=== PATIENT | male | born 1945 | race Caucasian/White ===

== ENCOUNTER 2016-10-16 16:18 | Emergency (ER) | payer OTHER, BC ==
[~2016-10-16] VITALS: Ht 177.8 cm; Wt 129.6 kg
[~2016-10-16 16:18] MED LIST: ALBUAER19 INH; ALPR1TAB3 PO; AMB10 PO; BENA1TAB53 PO; FLUO20CA35 PO; HYDC25 PO; MULT-506 PO; TADA10TA PO; ULT/50 PO
[2016-10-16 16:24] VITALS: Ht 177.8 cm; Wt 129.6 kg
[2016-10-16] MEDS ORDERED: ASPIRIN 81 MG CHEW PO STA (16:39)
[2016-10-16 16:44] VITALS: O2SAT 93
--- NOTE | 2016-10-16 16:56 | DIAGNOSTIC IMAGING REPORT ---
CHEST ONE VIEW PORTABLE CLINICAL HISTORY: Evaluate Fever/Sepsis COMPARISON STUDY: 09/01/2011 FINDINGS: The bones soft tissues and hemidiaphragms are normal. The cardiomediastinal silhouette is normal. The lungs are clear. The pulmonary vasculature is normal. IMPRESSION: Negative chest. Electronically signed by: Jacob Conklin M.D. 10/16/2016 4:54 PM Dictated Date/Time: 10/16/2016 4:54 PM
[2016-10-16 16:58] LABS: BASO % 0.3 %; BASO ABS # 0.02 K/uL (0-0.2); COMPLETE YES; EOS % 4.2 %; HEMATOCRIT 47.1 % (42-52); IG% 0.1 %; LYMPH % 28.3 %; LYMPH ABS # 2.04 K/uL (1.2-3.4); MEAN CELL VOLUME 95.3 fL (80-100); MEAN CORPUSCULAR HGB CONC 33.5 g/dl (32-36); MEAN PLATELET VOLUME 9.8 fL (7.4-10.4); NEUT % 57.1 %; PLATELET COUNT 300 K/uL (130-400); RED BLOOD COUNT 4.94 M/uL (4.7-6.1); WHITE BLOOD COUNT 7.21 K/uL (4.8-10.8)
[2016-10-16 17:06] LABS: PARTIAL THROMBOPLASTIN RATIO 1.1; PROTHROMBIN TIME (PATIENT) 11.1 SECONDS (9.0-12.0)
[2016-10-16] MEDS ORDERED: FLUO20CA35 PO (17:06)
[2016-10-16] MEDS ORDERED: PRLSR20 PO (17:10)
[2016-10-16] MEDS ORDERED: NAPR1TAB48 PO (17:11)
[2016-10-16 17:18] LABS: ALT/SGPT 34 U/L (12-78); AST/SGOT 24 U/L (15-37); BLOOD UREA NITROGEN 36 mg/dl (7-18); BUN/CREATININE RATIO 25.4 (10-20); CALCIUM 8.9 mg/dl (8.5-10.1); CARBON DIOXIDE 30 mmol/L (21-32); CHLORIDE 103 mmol/L (98-107); GLUCOSE 108 mg/dl (70-99); POTASSIUM 3.6 mmol/L (3.5-5.1); SODIUM 140 mmol/L (136-145)
[2016-10-16 17:22] LABS: URINE APPEARANCE CLEAR (CLEAR); URINE BILIRUBIN NEG (NEG); URINE COLOR YELLOW; URINE NITRITE NEG (NEG); URINE SPECIFIC GRAVITY 1.025 (1.000-1.030); UROBILINOGEN NEG (NEG)
[2016-10-16 17:23] LABS: MANUAL MICROSCOPIC REQUIRED? NO; REVIEW REQ? NO
[2016-10-16 17:29] LABS: ALKALINE PHOSPHATASE 95 U/L (45-117); CKMB/CK RATIO 1.1 (0-3.0)
--- NOTE | 2016-10-16 17:48 | EMERGENCY ROOM VISIT NOTE ---
History Report prepared by Emile: Efren Elizalde Under the Supervision of: Dr. Corby Rose D.O. First contact with patient: 16:28 Chief Complaint: RESPIRATORY PROBLEMS Stated Complaint: POSSIBLE PNX Nursing Triage Summary: pt reports hx of pneumonia and has a ventolin inh to use as needed , " I feel like my breathing is restricted X 3-4 days with sinus congestion R ear feels plugged and painful" reports feeling a burning feeling and tightness in chest + mucus production kasper to clear in color History of Present Illness The patient is a 71 year old male who presents to the Emergency Room with complaints of constant shortness of breath beginning around 4 days ago. He currently rates his discomfort a 7/10 in severity. The patient states that his chest is constantly tight and "it feels like I just did the breast stroke for a week straight." He notes that he does not mind being sick, but his symptoms will not go away. The patient reports that he has been experiencing a gross amount of diaphoresis. He states that when he coughs he gets very lightheaded, numb, and dizzy. 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 He reports that he tends to get chest pain when he does strenuous activity. The patient states that he has seen a insurance business analyst but has never had a stress test. He notes that he takes Prilosec daily, but he ran out of his prescription a few days ago. Source of History: patient Onset: 4 days ago Position: other (global) Symptom Intensity: 7/10 Quality: other (shortness of breath) Timing: constant Modifying Factors (Worsening): exertion (excess) Associated Symptoms: + chest pain, + diaphoresis Note: Associated symptoms: lightheadedness Review of Systems See HPI for pertinent positives & negatives. A total of 10 systems reviewed and were otherwise negative. Past Medical & Surgical Medical Problems: (1) Asthma (2) Biliary colic (3) Gallbladder disease (4) Hypertension (5) Pneumonia (6) Stomach problems Family History Cancer Diabetes mellitus Gallbladder disease Heart disease Social History Smoking Status: Never Smoker Alcohol Use: none Marital Status: Housing Status: lives with family Occupation Status: retired Current/Historical Medications Scheduled Benazepril (Lotensin), 40 MG PO QAM Fluoxetine (Prozac), 60 MG PO QAM Fluoxetine (Prozac), 1 CAP PO HS Hydrochlorothiazide (Hctz *), 25 MG PO QAM Naproxen (Naprosyn), 250 MG PO BID Omeprazole (Prilosec), 20 MG PO DAILY Zolpidem Tartrate (Ambien *), 10 MG PO HS Scheduled PRN Albuterol Inhaler (Ventolin Inhaler), 2 PUFFS INH QID PRN for SOB/Wheezing Alprazolam (Xanax), 1 MG PO TID PRN for Anxiety Tramadol Hcl (Ultram), 100 MG PO Q4H PRN for Pain Allergies Coded Allergies: Diclofenac (Verified Allergy, Mild, CAUSED JAUNDICE, ALTERED LIVER FUNCTION, 10/16/16) Physical Exam Vital Signs Date Time Temp Pulse Resp B/P Pulse Ox O2 Delivery O2 Flow Rate FiO2 10/16/16 16:56 77 10/16/16 16:45 93 Room Air 10/16/16 16:44 93 Room Air 10/16/16 16:24 36.8 84 18 143/87 96 Room Air Physical Exam CONSTITUTIONAL/VITAL SIGNS: Reviewed / noted above. GENERAL: Non-toxic in appearance. INTEGUMENTARY: Warm, dry, and [place]. HEAD: Normocephalic. EYES: without scleral icterus or trauma. ENT/OROPHARYNX: clear and moist. LYMPHADENOPATHY/NECK: Is supple without lymphadenopathy or meningismus. RESPIRATORY: Lungs clear and equal, occasional non-productive cough. CARDIOVASCULAR: Regular rate and rhythm. GI/ABDOMEN: Soft and nontender. No organomegaly or pulsatile mass. No rebound or guarding. Normal bowel sounds. EXTREMITIES: Warm and well perfused. BACK: No CVA tenderness. NEUROLOGICAL: Intact without focal deficits. PSYCHIATRIC: normal affect. MUSCULOSKELETAL: Normally developed with good muscle tone. Medical Decision & Procedures ER Provider Diagnostic Interpretation: X ray results and stated below per my interpretation and radiology interpretation. CHEST ONE VIEW PORTABLE CLINICAL HISTORY: Evaluate Fever/Sepsis COMPARISON STUDY: 09/01/2011 FINDINGS: The bones soft tissues and hemidiaphragms are normal. The cardiomediastinal silhouette is normal. The lungs are clear. The pulmonary vasculature is normal. IMPRESSION: Negative chest. Electronically signed by: Jacob Conklin M.D. 10/16/2016 4:54 PM Dictated Date/Time: 10/16/2016 4:54 PM Laboratory Results 10/16/16 16:40 Red Blood Count 4.94, Mean Corpuscular Volume 95.3, Mean Corpuscular Hemoglobin 32.0, Mean Corpuscular Hemoglobin Concent 33.5, Mean Platelet Volume 9.8, Neutrophils (%) (Auto) 57.1, Lymphocytes (%) (Auto) 28.3, Monocytes (%) (Auto) 10.0, Eosinophils (%) (Auto) 4.2, Basophils (%) (Auto) 0.3, Neutrophils # (Auto ) 4.12, Lymphocytes # (Auto) 2.04, Monocytes # (Auto) 0.72, Eosinophils # (Auto ) 0.30, Basophils # (Auto) 0.02 10/16/16 16:40 Test 10/16/16 16:40 10/16/16 17:00 White Blood Count 7.21 K/uL (4.8-10.8) Red Blood Count 4.94 M/uL (4.7-6.1) Hemoglobin 15.8 g/dL (14.0-18.0) Hematocrit 47.1 % (42-52) Mean Corpuscular Volume 95.3 fL (80-100) Mean Corpuscular Hemoglobin 32.0 pg (25-34) Mean Corpuscular Hemoglobin Concent 33.5 g/dl (32-36) Platelet Count 300 K/uL (130-400) Mean Platelet Volume 9.8 fL (7.4-10.4) Neutrophils (%) (Auto) 57.1 % Lymphocytes (%) (Auto) 28.3 % Monocytes (%) (Auto) 10.0 % Eosinophils (%) (Auto) 4.2 % Basophils (%) (Auto) 0.3 % Neutrophils # (Auto) 4.12 K/uL (1.4-6.5) Lymphocytes # (Auto) 2.04 K/uL (1.2-3.4) Monocytes # (Auto) 0.72 K/uL (0.11-0.59) Eosinophils # (Auto) 0.30 K/uL (0-0.5) Basophils # (Auto) 0.02 K/uL (0-0.2) RDW Standard Deviation 46.2 fL (36.4-46.3) RDW Coefficient of Variation 13.2 % (11.5-14.5) Immature Granulocyte % (Auto) 0.1 % Immature Granulocyte # (Auto) 0.01 K/uL (0.00-0.02) Prothrombin Time 11.1 SECONDS (9.0-12.0) Prothromb Time International Ratio 1.0 (0.9-1.1) Activated Partial Thromboplast Time 28.0 SECONDS (21.0-31.0) Partial Thromboplastin Ratio 1.1 Anion Gap 7.0 mmol/L (3-11) Est Creatinine Clear Calc Drug Dose 67.4 ml/min Estimated GFR () 59.0 Estimated GFR (Non- 50.9 BUN/Creatinine Ratio 25.4 (10-20) Calcium Level 8.9 mg/dl (8.5-10.1) Total Bilirubin 0.5 mg/dl (0.2-1) Direct Bilirubin 0.1 mg/dl (0-0.2) Aspartate Amino Transf (AST/SGOT) 24 U/L (15-37) Alanine Aminotransferase (ALT/SGPT) 34 U/L (12-78) Alkaline Phosphatase 95 U/L (45-117) Total Creatine Kinase 156 U/L (39-308) Creatine Kinase MB 1.7 ng/ml (0.5-3.6) Creatine Kinase MB Ratio 1.1 (0-3.0) Troponin I < 0.015 ng/ml (0-0.045) Total Protein 7.8 gm/dl (6.4-8.2) Albumin 4.2 gm/dl (3.4-5.0) Lipase 170 U/L (73-393) Thyroid Stimulating Hormone (TSH) 3.380 uIu/ml (0.300-4.500) Urine Color YELLOW Urine Appearance CLEAR (CLEAR) Urine pH 6.0 (4.5-7.5) Urine Specific [place] 1.025 (1.000-1.030) Urine Protein NEG (NEG) Urine Glucose (UA) NEG (NEG) Urine Ketones NEG (NEG) Urine Occult Blood NEG (NEG) Urine Nitrite NEG (NEG) Urine Bilirubin NEG (NEG) Urine Urobilinogen NEG (NEG) Urine Leukocyte Esterase SMALL (NEG) Urine WBC (Auto) 1-5 /hpf (0-5) Urine RBC (Auto) 0-4 /hpf (0-4) Urine Hyaline Casts (Auto) 1-5 /lpf (0-5) Urine Epithelial Cells (Auto) 5-10 /lpf (0-5) Urine Bacteria (Auto) NEG (NEG) Laboratory results as stated above per my review. Medications Administered Medications (Trade) Dose Ordered Sig/Marta Route Start Time Stop Time Status Last Admin Dose Admin Aspirin (Aspirin Chew) 324 mg NOW STAT PO 10/16/16 16:39 10/16/16 16:41 DC 10/16/16 16:54 324 MG ECG Indication: SOB/dyspnea Rate (beats per minute): 77 Rhythm: normal sinus Findings: no acute ischemic change, no ectopy ED Course 1636: Previous medical records were reviewed. The patient was evaluated in room A10. A complete history and physical examination was performed. 1638: Ordered Aspirin 324 mg PO 9: On reevaluation, the patient is resting easily. I discussed the results and findings with the patient. He verbalized agreement of the treatment plan. He was discharged home. Medical Decision the differential was considered includes acute myocardial infarction, acute coronary syndrome, myocarditis, pericarditis, pericardial effusions /tamponad, esophageal perforation, thoracic aortic dissection, pulmonary embolism, pneumonia, pneumothorax, pancreatitis, shingles, acute cholecystitis, perforated abdominal viscus. This is a 71-year-old male who presents to the ED with a chief complaint of 3-4 days worth of sinus congestion as well as some tightness in his chest. He describes the tightness as a burning or tight sensation that has been continuous for the past 3 or 4 days. He has a cough that is productive for a grayish to clear sputum. The patient had some diaphoresis this afternoon and the was concerned and brought him to the ED for evaluation. He has not had a fever. His vital signs here are stable. His exam was normal. He does report some exertional symptoms over the past couple of years mainly with mowing the lawn or heavy exertion. He has not had any recent stress tests. His PCP is Dr. Chappell. His physical exam was unremarkable. CBC is normal, chest x-ray was negative for acute disease, chemistry panel was unremarkable with exception of a BUN of 36. TSH is normal, troponin is negative. Urine did not show infection. EKG did not show any ischemic changes. The patient was told results the test. His symptoms might suggest a viral syndrome or acute bronchitis. I do not suspect acute coronary syndrome. He would like to go home. He is told to follow-up with his family doctor for further evaluation of his symptoms. Impression Primary Impression: Bronchitis Additional Impression: URI (upper respiratory infection) Scribe Attestation The scribe's documentation has been prepared under my direction and personally reviewed by me in its entirety. I confirm that the note above accurately reflects all work, treatment, procedures, and medical decision making performed by me. Departure Information Dispostion Home / Self-Care Referrals Pradeep Chappell M.D. (PCP) Patient Instructions My [facility] Additional Instructions Follow-up with your doctor for further care and evaluation in 2-3 days. Return to the emergency department for worsening or new symptoms or any concerns. You have been examined and treated today on an emergency basis only. This is not a substitute for, or an effort to provide, complete comprehensive medical care. It is impossible to recognize and treat all injuries or illnesses in a single emergency department visit. It is therefore important that you follow up closely with your doctor. Call as soon as possible for an appointment. Problem Qualifiers
[2016-10-16 18:04] VITALS: BP 138/85; PULSE 75; TEMP 36.8; O2SAT 94
== END 2016-10-16 18:05 | disposition home or self-care (01) ==
LOC: C.EDB 16:18 → C.EDA 18:05
DX: J06.9 Acute upper respiratory infection, unspecified (principal); J40 Bronchitis, not specified as acute or chronic; J45.909 Unspecified asthma, uncomplicated; I10 Essential (primary) hypertension; K82.9 Disease of gallbladder, unspecified; K80.50 Calculus of bile duct without cholangitis or cholecystitis without obstruction; Z79.899 Other long term (current) drug therapy; Z88.8 Allergy status to other drugs, medicaments and biological substances; Z80.9 Family history of malignant neoplasm, unspecified; Z83.3 Family history of diabetes mellitus; Z83.79 Family history of other diseases of the digestive system; Z82.49 Family history of ischemic heart disease and other diseases of the circulatory system

== ENCOUNTER 2017-06-13 10:40 | Emergency (ER) | payer OTHER, BC ==
[~2017-06-13] VITALS: Ht 177.8 cm; Wt 131.7 kg
[~2017-06-13 10:40] MED LIST changes: -MULT-506 PO; +NAPR1TAB48 PO; +PRLSR20 PO; -TADA10TA PO
[2017-06-13 10:47] VITALS: TEMP 36.5; Ht 177.8 cm; Wt 131.7 kg
[2017-06-13] MEDS ORDERED: PROCHLORPERAZINE 5 MG/ML 2 ML VIAL IV STA (10:59)
[2017-06-13] MEDS ORDERED: DiphenhydrAMINE HCL 50 MG/ML VIAL IV STA (10:59)
[2017-06-13] MEDS ORDERED: SODIUM CHLORIDE 0.9% 500ML 500 ML IV STA (10:59)
--- NOTE | 2017-06-13 11:04 | EMERGENCY ROOM VISIT NOTE ---
History Report prepared by Emile: Jasmeet Hills Under the Supervision of: Dr. Alycia Graff M.D. First contact with patient: 10:55 Chief Complaint: HEADACHE Stated Complaint: JI AND VISION History of Present Illness The patient is a 72 year old male with a history of hypertension who presents to the Emergency Room with complaints of persistent head pain that started 4 to 5 weeks ago after hitting his head. He states that at that time, he was playing with his cat, and fell and landed "solely on [his] head". The patient says that he has had constant pain since the incident, and he has been having eye soreness and pressure as well. He notes that he has not vomited, but has been close. He states that he has been having some neck pain and "tension". The patient says that he has been eating and drinking fine. He notes no blood thinner use. Source of History: patient Onset: 4 to 5 weeks ago Position: head Symptom Intensity: after landing on head 4 to 5 weeks ago Quality: other (pain all the way around) Timing: constant, other (persistent) Associated Symptoms: + neck pain, No vomiting (but has been close.) Note: Associated symptoms: Eye pressure and soreness. Review of Systems See HPI for pertinent positives & negatives. A total of 10 systems reviewed and were otherwise negative. Past Medical & Surgical Medical Problems: (1) Asthma (2) Biliary colic (3) Gallbladder disease (4) Hypertension (5) Pneumonia (6) Stomach problems Family History Cancer Diabetes mellitus Gallbladder disease Heart disease Social History Smoking Status: Never Smoker Alcohol Use: none Marital Status: Housing Status: lives with family Occupation Status: retired Current/Historical Medications Scheduled Benazepril (Lotensin), 40 MG PO DAILY Fluoxetine (Prozac), 60 MG PO DAILY Hydrochlorothiazide (Hydrochlorothiazide), 25 MG PO DAILY Naproxen (Naproxen), 500 MG PO UD Scheduled PRN Alprazolam (Xanax), 1 MG PO TID PRN for Anxiety Tramadol Hcl (Ultram), 100 MG PO Q4H PRN for Pain Zolpidem Tartrate (Ambien), 10 MG PO HS PRN for Sleep Allergies Coded Allergies: Diclofenac (Verified Allergy, Mild, CAUSED JAUNDICE, ALTERED LIVER FUNCTION, 10/16/16) Physical Exam Vital Signs Date Time Temp Pulse Resp B/P (MAP) Pulse Ox O2 Delivery O2 Flow Rate FiO2 06/13/17 13:05 72 18 128/68 96 Room Air 06/13/17 10:47 36.5 77 20 143/81 96 Room Air Physical Exam Vital signs reviewed. General: Well-appearing 72 year old male, in no significant distress. HEENT: No scleral icterus, PERRLA, neck supple. No meningeal signs Cardiovascular: Regular rate and rhythm, no extra sounds. Pulmonary: Clear to auscultation bilaterally, normal work of breathing. Abdomen: Soft, nontender, nondistended, positive bowel sounds. Musculoskeletal: Atraumatic, no peripheral edema. Mild cervical tenderness. Neurologic: Patient awake alert and oriented x 3, full strength in all 4 extremities. Cranial nerves 2 through 12 grossly intact. Skin: Warm, dry, no rash Medical Decision & Procedures ER Provider Diagnostic Interpretation: CT results as stated below per my review and radiologist interpretation: HEAD WITHOUT CONTRAST (CT) CT DOSE: 1186.24 mGy.cm HISTORY: Headache. Trauma. headache TECHNIQUE: Multiaxial CT images of the head were performed without the use of intravenous contrast. A dose lowering technique was utilized adhering to the principles of ALARA. Comparison: None. Findings: The paranasal sinuses and mastoid air cells are clear. The calvarium and skull base are intact. The ventricles and sulci are within normal limits. There is no mass, hematoma, midline shift, or acute infarct. Impression: No acute intracranial abnormality. The above report was generated using voice recognition software. It may contain grammatical, syntax or spelling errors. Electronically signed by: Jacob Conklin M.D 06/13/2017 11:57 AM Dictated Date/Time: 06/13/2017 11:[address] SCAN OF THE CERVICAL SPINE CLINICAL HISTORY: Neck pain. Fall one month ago. COMPARISON STUDY: Radiographs of the cervical spine dated 08/16/2008. TECHNIQUE: CT scan of the cervical spine is performed from the skull base to the upper thoracic spine. Images are reviewed in the axial, sagittal, and coronal planes. IV contrast was not administered for this examination. A dose lowering technique was utilized adhering to the principles of ALARA. FINDINGS: Skeletal structures: The skeletal structures are osteopenic. There is no evidence of fracture or subluxation involving the cervical spine. Vertebral body height and alignment are maintained. There are postoperative changes from anterior fusion seen at C5-C6. The orthopedic hardware appears intact. There is straightening of the cervical lordosis. The odontoid process and lateral masses are intact. The atlantoaxial articulation is preserved noting advanced productive degenerative change. The spinous processes appear intact. There is moderate multilevel cervical spondylosis. Uncovertebral and facet arthropathy contribute to neural foraminal narrowing at several levels. Intervertebral discs: There is moderate to advanced disc space narrowing seen from C3 -C4 through C7-T1. Central canal: Large posterior disc osteophyte complexes are seen at C3-C4, C4-C5, C5-C6, and C6-C7. This likely contributes to multilevel acquired compromise of the central canal. Soft tissues: The prevertebral and paraspinous soft tissues are within normal limits. Calcification is seen along the nuchal ligament. Calvarium: The visualized calvarium at the skull base appears intact. Brain parenchyma: Partially visualized brain parenchyma the skull base is within normal limits. Sinuses and mastoids: The visualized paranasal sinuses are clear. The mastoid air cells are well pneumatized. Lung apices: Clear as visualized. IMPRESSION: 1. There is no evidence of fracture or subluxation involving the cervical spine. 2. Osteopenia with postoperative and spondylotic changes as above. Electronically signed by: Tr Mccauley M.D. 06/13/2017 12:07 PM Dictated Date/Time: 06/13/2017 12:03 PM Laboratory Results 06/13/17 11:15 Red Blood Count 4.62, Mean Corpuscular Volume 95.7, Mean Corpuscular Hemoglobin 32.5, Mean Corpuscular Hemoglobin Concent 33.9, Mean Platelet Volume 10.2, Neutrophils (%) (Auto) 60.5, Lymphocytes (%) (Auto) 24.4, Monocytes (%) (Auto) 9.6, Eosinophils (%) (Auto) 4.9, Basophils (%) (Auto) 0.3, Neutrophils # (Auto) 3.47, Lymphocytes # (Auto) 1.40, Monocytes # (Auto) 0.55, Eosinophils # (Auto) 0.28, Basophils # (Auto) 0.02 06/13/17 11:15 Test 06/13/17 11:15 White Blood Count 5.74 K/uL (4.8-10.8) Red Blood Count 4.62 M/uL (4.7-6.1) Hemoglobin 15.0 g/dL (14.0-18.0) Hematocrit 44.2 % (42-52) Mean Corpuscular Volume 95.7 fL (80-100) Mean Corpuscular Hemoglobin 32.5 pg (25-34) Mean Corpuscular Hemoglobin Concent 33.9 g/dl (32-36) Platelet Count 287 K/uL (130-400) Mean Platelet Volume 10.2 fL (7.4-10.4) Neutrophils (%) (Auto) 60.5 % Lymphocytes (%) (Auto) 24.4 % Monocytes (%) (Auto) 9.6 % Eosinophils (%) (Auto) 4.9 % Basophils (%) (Auto) 0.3 % Neutrophils # (Auto) 3.47 K/uL (1.4-6.5) Lymphocytes # (Auto) 1.40 K/uL (1.2-3.4) Monocytes # (Auto) 0.55 K/uL (0.11-0.59) Eosinophils # (Auto) 0.28 K/uL (0-0.5) Basophils # (Auto) 0.02 K/uL (0-0.2) RDW Standard Deviation 47.3 fL (36.4-46.3) RDW Coefficient of Variation 13.6 % (11.5-14.5) Immature Granulocyte % (Auto) 0.3 % Immature Granulocyte # (Auto) 0.02 K/uL (0.00-0.02) Anion Gap 6.0 mmol/L (3-11) Est Creatinine Clear Calc Drug Dose 67.5 ml/min Estimated GFR () 59.1 Estimated GFR (Non- 51.0 BUN/Creatinine Ratio 22.1 (10-20) Calcium Level 9.0 mg/dl (8.5-10.1) Total Bilirubin 0.7 mg/dl (0.2-1) Direct Bilirubin 0.1 mg/dl (0-0.2) Aspartate Amino Transf (AST/SGOT) 19 U/L (15-37) Alanine Aminotransferase (ALT/SGPT) 29 U/L (12-78) Alkaline Phosphatase 91 U/L (45-117) Total Protein 7.9 gm/dl (6.4-8.2) Albumin 4.2 gm/dl (3.4-5.0) Laboratory results per my review. Medications Administered Medications (Trade) Dose Ordered Sig/Marta Route Start Time Stop Time Status Last Admin Dose Admin Prochlorperazine Edisylate (Compazine Inj) 10 mg NOW STAT IV 06/13/17 10:59 06/13/17 11:01 DC 06/13/17 11:26 10 MG Diphenhydramine HCl (Benadryl Inj) 25 mg NOW STAT IV 06/13/17 10:59 06/13/17 11:01 DC 06/13/17 11:26 25 MG Sodium Chloride 500 ml @ 999 mls/hr Q31M STAT IV 06/13/17 10:59 06/13/17 11:29 DC 06/13/17 11:27 999 MLS/HR Methylprednisolone Sodium Succinate (Solu-Medrol IV) 125 mg NOW STAT IV 06/13/17 11:07 06/13/17 11:08 DC 06/13/17 11:25 125 MG ED Course 1058: Past medical records reviewed. The patient was evaluated in room A2. A complete history and physical examination was performed. 1059: Ordered NSS 500 ml @ 999 mls/hr IV, Benadryl Inj 25 mg IV, Compazine Inj 10 mg IV. 1107: Ordered Solu-Medrol IV 125 mg IV. 1314: Upon reevaluation, the patient appeared to have improvement of his symptoms. I discussed findings with him. He verbalized agreement of the treatment plan. He was discharged home. Medical Decision Differential diagnosis: Intracranial injury, cervical spine injury, intrathoracic injury, intra- abdominal injury, musculoskeletal injury. This patient was evaluated and appeared to be in no significant distress. IV access was obtained and laboratory work was drawn. He was given IV Benadryl, Compazine and Solu-Medrol. Laboratory work is fairly unrevealing. CT scan of the head reveals no evidence of acute intracranial abnormality. Reevaluation, the patient stated that the headache was improved but still persistent. He will be asked to use Tylenol and ibuprofen as needed for pain. He will follow- up with his primary care physician for further management. The patient will return to the ER for worsening of symptoms or any medical concerns. Medication Reconcilliation Current Medication List: was personally reviewed by me Blood Pressure Screening Patient's blood pressure: Elevated blood pressure Blood pressure disposition: Elevated BP felt to be situational Impression Primary Impression: Post concussive syndrome Scribe Attestation The scribe's documentation has been prepared under my direction and personally reviewed by me in its entirety. I confirm that the note above accurately reflects all work, treatment, procedures, and medical decision making performed by me. Departure Information Dispostion Home / Self-Care Referrals Pradeep Chappell M.D. (PCP) Patient Instructions My [facility] Additional Instructions Diagnosis: Postconcussive syndrome Please drink plenty of clear fluids. Tylenol 650 mg every 6 hours as needed for pain. Ibuprofen 600 mg every 6 hours as needed for pain with food. Follow-up with your physician this week for reevaluation. Return to the ER for worsening of symptoms or any medical concerns.
[2017-06-13] MEDS ORDERED: METHYLPREDNISOLONE 125 MG VIAL IV STA (11:07)
[2017-06-13 11:55] LABS: BASO % 0.3 %; BASO ABS # 0.02 K/uL (0-0.2); EOS % 4.9 %; EOS ABS # 0.28 K/uL (0-0.5); HEMATOCRIT 44.2 % (42-52); IG# 0.02 K/uL (0.00-0.02); LYMPH % 24.4 %; MEAN CELL VOLUME 95.7 fL (80-100); MEAN CORPUSCULAR HEMOGLOBIN 32.5 pg (25-34); MEAN CORPUSCULAR HGB CONC 33.9 g/dl (32-36); MEAN PLATELET VOLUME 10.2 fL (7.4-10.4); MONO % 9.6 %; MONO ABS # 0.55 K/uL (0.11-0.59); NEUT % 60.5 %; NEUT ABS # 3.47 K/uL (1.4-6.5); PLATELET COUNT 287 K/uL (130-400); RED CELL DISTRIBUTION WIDTH CV 13.6 % (11.5-14.5); RED CELL DISTRIBUTION WIDTH SD 47.3 fL (36.4-46.3); WHITE BLOOD COUNT 5.74 K/uL (4.8-10.8)
--- NOTE | 2017-06-13 11:59 | DIAGNOSTIC IMAGING REPORT ---
HEAD WITHOUT CONTRAST (CT) CT DOSE: 1186.24 mGy.cm HISTORY: Headache. Trauma. headache TECHNIQUE: Multiaxial CT images of the head were performed without the use of intravenous contrast. A dose lowering technique was utilized adhering to the principles of ALARA. Comparison: None. Findings: The paranasal sinuses and mastoid air cells are clear. The calvarium and skull base are intact. The ventricles and sulci are within normal limits. There is no mass, hematoma, midline shift, or acute infarct. Impression: No acute intracranial abnormality. The above report was generated using voice recognition software. It may contain grammatical, syntax or spelling errors. Electronically signed by: Jacob Conklin M.D. 06/13/2017 11:57 AM Dictated Date/Time: 06/13/2017 11:57 AM
--- NOTE | 2017-06-13 12:09 | DIAGNOSTIC IMAGING REPORT ---
CT SCAN OF THE CERVICAL SPINE CLINICAL HISTORY: Neck pain. Fall one month ago. COMPARISON STUDY: Radiographs of the cervical spine dated 08/16/2008. TECHNIQUE: CT scan of the cervical spine is performed from the skull base to the upper thoracic spine. Images are reviewed in the axial, sagittal, and coronal planes. IV contrast was not administered for this examination. A dose lowering technique was utilized adhering to the principles of ALARA. FINDINGS: Skeletal structures: The skeletal structures are osteopenic. There is no evidence of fracture or subluxation involving the cervical spine. Vertebral body height and alignment are maintained. There are postoperative changes from anterior fusion seen at C5-C6. The orthopedic hardware appears intact. There is straightening of the cervical lordosis. The odontoid process and lateral masses are intact. The atlantoaxial articulation is preserved noting advanced productive degenerative change. The spinous processes appear intact. There is moderate multilevel cervical spondylosis. Uncovertebral and facet arthropathy contribute to neural foraminal narrowing at several levels. Intervertebral discs: There is moderate to advanced disc space narrowing seen from C3 -C4 through C7-T1. Central canal: Large posterior disc osteophyte complexes are seen at C3-C4, C4-C5, C5-C6, and C6-C7. This likely contributes to multilevel acquired compromise of the central canal. Soft tissues: The prevertebral and paraspinous soft tissues are within normal limits. Calcification is seen along the nuchal ligament. Calvarium: The visualized calvarium at the skull base appears intact. Brain parenchyma: Partially visualized brain parenchyma the skull base is within normal limits. Sinuses and mastoids: The visualized paranasal sinuses are clear. The mastoid air cells are well pneumatized. Lung apices: Clear as visualized. IMPRESSION: 1. There is no evidence of fracture or subluxation involving the cervical spine. 2. Osteopenia with postoperative and spondylotic changes as above. Electronically signed by: Tr Mccauley M.D. 06/13/2017 12:07 PM Dictated Date/Time: 06/13/2017 12:03 PM
[2017-06-13 12:20] LABS: ALBUMIN 4.2 gm/dl (3.4-5.0); CREATININE 1.39 mg/dl (0.60-1.40); POTASSIUM 3.7 mmol/L (3.5-5.1)
[2017-06-13 12:23] LABS: TOTAL PROTEIN 7.9 gm/dl (6.4-8.2)
[2017-06-13] MEDS ORDERED: HYDR25TA5 PO (12:32)
[2017-06-13] MEDS ORDERED: FLUO20CA35 PO (12:32)
[2017-06-13] MEDS ORDERED: BENA1TAB53 PO (12:32)
[2017-06-13] MEDS ORDERED: ALPR1TAB3 PO (12:32)
[2017-06-13] MEDS ORDERED: ZOLP10TA PO (12:32)
[2017-06-13] MEDS ORDERED: ULT/50 PO (12:32)
[2017-06-13] MEDS ORDERED: NAPR500T3 PO (12:32)
[2017-06-13 13:05] VITALS: BP 128/68; PULSE 72; O2SAT 96
== END 2017-06-13 13:30 | disposition home or self-care (01) ==
LOC: C.EDB 10:43 → C.EDA 13:30
DX: F07.81 Postconcussional syndrome (principal); J45.909 Unspecified asthma, uncomplicated; K80.50 Calculus of bile duct without cholangitis or cholecystitis without obstruction; K82.9 Disease of gallbladder, unspecified; I10 Essential (primary) hypertension; Z87.01 Personal history of pneumonia (recurrent); Z80.9 Family history of malignant neoplasm, unspecified; Z83.3 Family history of diabetes mellitus; Z83.79 Family history of other diseases of the digestive system; Z82.49 Family history of ischemic heart disease and other diseases of the circulatory system; Z79.899 Other long term (current) drug therapy

== ENCOUNTER → 2017-06-23 | Outpatient (CLI) | payer OTHER, BC ==
[~2017-06-23] MED LIST changes: -ALBUAER19 INH; -AMB10 PO; -HYDC25 PO; +HYDR25TA5 PO; -NAPR1TAB48 PO; +NAPR500T3 PO; -PRLSR20 PO; +ZOLP10TA PO
--- NOTE | 2017-06-23 11:56 | DIAGNOSTIC IMAGING REPORT ---
HEAD WITHOUT CONTRAST (CT) CT DOSE: 638.56 mGycm HISTORY: Trauma CONCUSSION W/DUAL CONFUSION F/U ER VISIT TECHNIQUE: Multiaxial CT images of the head were performed without the use of intravenous contrast. A dose lowering technique was utilized adhering to the principles of ALARA. Comparison: 06/13/2017 Findings: The paranasal sinuses and mastoid air cells are clear. The calvarium and skull base are intact. The ventricles and sulci are within normal limits. There is no mass, hematoma, midline shift, or acute infarct. Impression: No acute intracranial abnormality. No change from the prior study The above report was generated using voice recognition software. It may contain grammatical, syntax or spelling errors. Electronically signed by: Jacob Conklin M.D. 06/23/2017 11:55 AM Dictated Date/Time: 06/23/2017 11:53 AM
== END | disposition home or self-care (01) ==
LOC: C.CTS 11:19
PROVIDERS: ATTEND Family Medicine
DX: S06.0X9A Concussion with loss of consciousness of unspecified duration, initial encounter (principal); X58.XXXA Exposure to other specified factors, initial encounter

== ENCOUNTER → 2017-07-18 | Outpatient (CLI) | payer OTHER, BC ==
--- NOTE | 2017-07-18 18:33 | DIAGNOSTIC IMAGING REPORT ---
CHEST 2 VIEWS ROUTINE HISTORY: ACUTE ASTHMA EXACERBATION COMPARISON: Chest 10/16/2016. FINDINGS: The lungs are clear. Cardiac silhouette is normal in size. No pleural effusions. No pneumothorax. Cervical spinal fusion hardware. IMPRESSION: No acute process. Electronically signed by: Todd Guerra M.D. 07/18/2017 6:32 PM Dictated Date/Time: 07/18/2017 6:30 PM
== END | disposition home or self-care (01) ==
LOC: C.RAD 18:13
PROVIDERS: ATTEND Family Medicine
DX: J45.901 Unspecified asthma with (acute) exacerbation (principal); Z88.6 Allergy status to analgesic agent

== ENCOUNTER 2022-02-07 13:01 | Observation (INO) ==
[2022-02-07] MEDS ORDERED: LORazepam 2 MG/1 ML VIAL IV STA ×2 (13:06→13:12)
[2022-02-07] MEDS: SODIUM CHLORIDE 0.9% 1000ML 1,000 ML IV SCH ×2 (13:19→20:30)
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
[2022-02-07 13:27] LABS: Basophils # (auto) 0.04 K/uL (0-0.2); Basophils % (auto) 0.3 %; Eosinophils # (auto) 0.04 K/uL (0-0.50); Eosinophils % (auto) 0.3 %; Hematocrit (blood only) 44.2 % (40.1-51.0); Hemoglobin 14.5 g/dl (14.0-18.0); Immature Granulocytes # (auto) 0.03 K/uL (0.00-0.02); Immature Granulocytes % (auto) 0.2 %; Lymphocytes # (auto) 0.86 K/uL (1.2-3.4); Lymphocytes % (auto) 6.8 %; Mean Corpuscular Hemoglobin 31.9 pg (25.0-34.0); Mean Corpuscular Hgb Conc 32.8 g/dL (32.0-36.0); Mean Corpuscular Volume 97.1 fL (80.0-100.0); Mean Platelet Volume 10.9 fL (9.4-12.4); Monocytes # (auto) 0.71 K/uL (0.24-0.82); Monocytes % (auto) 5.6 %; Neutrophils # (auto) 10.92 K/uL (1.4-6.5); Neutrophils % (auto) 86.8 %; Platelet Count 264 K/uL (130-400); RDW Coefficient of Variation 13.4 % (11.5-14.5); RDW Standard Deviation 47.8 fL (36.4-46.3); Red Blood Count 4.55 M/uL (4.63-6.08)
--- NOTE | 2022-02-07 13:31 | XRay Report ---
XR chest 1V portable HISTORY: 76 years-old Male cp acute chest pain COMPARISON: Chest radiograph 08/03/2018 TECHNIQUE: Portable AP view of the chest FINDINGS: Cardiomediastinal and hilar silhouettes are within normal limits. No pneumothorax, pleural effusion, airspace consolidation or overt pulmonary edema. Mild chronic interstitial coarsening of the lung bas es. Degenerative changes of the shoulders and spine. IMPRESSION: No acute process. ACT 112: Negative or not required by law. The above report was generated using voice recognition software. It may contain grammatical, syntax o r spelling errors. Electronically signed by: Trey Deleon M.D. 02/07/2022 1:29 PM
--- NOTE | 2022-02-07 13:53 | CT Scan Report ---
CT head/brain wo con CLINICAL HISTORY: 76 years-old Male with pssoible seizure. Acute seizure like activity TECHNIQUE: Multiple axial CT images of the head were obtained without contrast. A dose lowering tech nique was utilized adhering to the principles of ALARA. CT DOSE: 614.27 mGy.cm COMPARISON: Head CT 08/03/2018 FINDINGS: No acute intracranial hemorrhage, midline shift, intracranial mass, hydrocephalus, territorial ischem ia or abnormal extra-axial collection. Mild involutional changes. Carotid vascular calcifications. The calvarium is intact. Trace mastoid effusions. The paranasal sinuses are clear. Unremarkable soft tissues. IMPRESSION: No acute intracranial abnormality. ACT 112: Negative or not required by law. The above report was generated using voice recognition software. It may contain grammatical, syntax o r spelling errors. Electronically signed by: Trey Deleon M.D. 02/07/2022 1:51 PM
[2022-02-07 14:48] LABS: Partial Thromboplastin Ratio 0.9
[2022-02-07 15:07] LABS: Troponin I High Sensitivity 4.5 pg/ml (0-20)
[2022-02-07 15:09] LABS: Albumin Level 4.2 gm/dl (3.4-5.0); Bilirubin Direct 0.1 mg/dl (0-0.2); Bilirubin,Total 0.7 mg/dl (0.2-1.0); Calcium 9.3 mg/dl (8.5-10.1); Creatinine Clr Calc Pharmacy 60.8 ml/min; Est GFR (African American) 64.1 ml/min; Est GFR (Non-African American) 55.3 ml/min; Magnesium 2.1 mg/dl (1.7-2.4); Potassium 4.1 mmol/L (3.5-5.1); Total Protein 7.1 gm/dl (6.0-8.3)
[2022-02-07] MEDS ORDERED: SODIUM CHLORIDE 0.9% 1000ML 500 ML IV ONE (15:12)
[2022-02-07] MEDS: SODIUM CHLORIDE 0.9% 500 ML IV SCH ×2 (15:17→20:30)
[2022-02-07] MEDS ORDERED: OPTIRAY 300 500mL IV ONE (16:03)
--- NOTE | 2022-02-07 16:25 | CT Scan Report ---
CT angio chest PE protocol CT DOSE: 853.28 mGy.cm HISTORY: 76 years-old Male with ro PE. Acute shortness of breath TECHNIQUE: Multiple CTA images of the chest were obtained after the intravenous administration of 101 ml Optiray. Coronal and sagittal MIPS were obtained from the axial data set and were submitted for review. All measurements were obtained according to NASCET criteria. A dose lowering technique was u tilized adhering to the principles of ALARA. COMPARISON: Chest radiograph of same day FINDINGS: CTA: The heart is mildly enlarged. No pericardial effusion. Moderate to extensive coronary artery calcific ations. No thoracic aortic aneurysm or dissection. Suboptimal violation of the pulmonary arterial holger e secondary to respiratory motion artifact. No central pulmonary emboli identified. CT CHEST: Unremarkable thyroid. No lymphadenopathy identified. No pneumothorax, pleural effusion, airspace cons olidation or overt pulmonary edema. Mild right hemidiaphragmatic elevation. No suspicious pulmonary n odules or masses. The central airways appear patent. Cholecystectomy. No acute process of the imaged upper abdomen. 5.1 cm cystic structure of the abdomin al left upper quadrant, possibly an exophytic renal cyst. Unremarkable soft tissues. No acute fractur e. Anterior plate and screw fusion hardware of the cervical spine. IMPRESSION: 1. Limited evaluation of the pulmonary arterial tree secondary to respiratory motion. No central pulm onary emboli identified. 2. No pleural effusion or airspace consolidation to suggest pneumonia. 3. Cardiomegaly. ACT 112: Negative or not required by law. The above report was generated using voice recognition software. It may contain grammatical, syntax o r spelling errors. Electronically signed by: Trey Deleon M.D. 02/07/2022 4:22 PM
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
[2022-02-07] MEDS ORDERED: LORazepam 2 MG/1 ML VIAL IV PRN (18:34)
[2022-02-07] MEDS ORDERED: LORazepam 4 MG in SYRINGE 2 ML IV PRN (19:22)
[2022-02-07] MEDS: ALPRAZolam 0.5 MG TABLET PO SCH (19:49)
[2022-02-07] MEDS: ENOXAPARIN INJ 40 MG/0.4 ML SYR SQ SCH (20:29)
[2022-02-07 22:57] LABS: Appearance Urine Clear (Clear); Bilirubin Urine Negative (Negative); Blood Urine Negative (Negative); Color Urine Yellow; Glucose Urine UA Trace (Negative); Ketones Urine Negative (Negative); Leukocyte Esterase Urine Negative (Negative); Nitrite Urine Negative (Negative); Protein Urine Negative (Negative); Specific Gravity Urine > 1.045 (1.000-1.030); Urobilinogen Urine Negative (Negative); pH Urine 5.5 (4.5-7.5)
[2022-02-08] MEDS ORDERED: PNEUMOCOCCAL Polysaccharide Vaccine 25mcg/0.5mL vial/Syr IM ONE (04:15)
[2022-02-08] MEDS: SODIUM CHLORIDE 0.9% 1000ML 1,000 ML IV SCH ×2 (04:48→13:35)
[2022-02-08 07:49] LABS: Hematocrit (blood only) 39.1 % (40.1-51.0); Hemoglobin 13.3 g/dl (14.0-18.0); Mean Corpuscular Hemoglobin 32.4 pg (25.0-34.0); Mean Corpuscular Volume 95.1 fL (80.0-100.0); Platelet Count 211 K/uL (130-400); RDW Coefficient of Variation 13.3 % (11.5-14.5); RDW Standard Deviation 46.7 fL (36.4-46.3); Red Blood Count 4.11 M/uL (4.63-6.08); White Blood Count 8.69 K/ul (4.8-10.8)
[2022-02-08 08:12] LABS: Albumin Globulin Ratio 1.4 (0.9-2); Albumin Level 3.7 gm/dl (3.4-5.0); BUN Creatinine Ratio 19.8 (10-20); Bilirubin,Total 0.7 mg/dl (0.2-1.0); Calcium 8.8 mg/dl (8.5-10.1); Creatinine Clr Calc Pharmacy 66.2 ml/min; Est GFR (African American) 71.5 ml/min; Est GFR (Non-African American) 61.7 ml/min; Globulin 2.7 gm/dl (2.5-4.0); Potassium 3.7 mmol/L (3.5-5.1); Total Protein 6.4 gm/dl (6.0-8.3)
[2022-02-08] MEDS: SODIUM CHLORIDE 0.9% 500 ML IV SCH ×2 (08:48→08:49)
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
[2022-02-08] MEDS: ALPRAZolam 0.5 MG TABLET PO SCH ×3 (09:28→20:01)
[2022-02-08] MEDS: ACETAMINOPHEN 325 MG TAB PO PRN ×2 (09:28→19:58)
[2022-02-08] MEDS: ENOXAPARIN INJ 40 MG/0.4 ML SYR SQ SCH ×2 (09:30→20:01)
--- NOTE | 2022-02-08 10:18 | Electrocardiogram Report ---
Test Reason : Blood Pressure : / mmHG Vent. Rate : 084 BPM Atrial Rate : 084 BPM P-R Int : 182 ms QRS Dur : 100 ms QT Int : 380 ms P-R-T Axes : 019 -07 053 degrees QTc Int : 449 ms Poor data quality, interpretation may be adversely affected Normal sinus rhythm Minimal voltage criteria for LVH, may be normal variant Borderline ECG When compared with ECG of 03-AUG-2018 02:31, No significant change was found Confirmed by Pradeep Jaime ([id number]) on 02/08/2022 10:18:29 AM Referred By: Confirmed By:Pradeep Jaime
--- NOTE | 2022-02-08 15:37 | XCELERA ---
[id number] \\[id number]
--- NOTE | 2022-02-08 18:59 | Hospitalist Progress Note ---
Date of Service February 08, 2022 Assessment & Plan (1) Seizure: Plan: Had witnessed seizure with apnea at home, likely secondary to benzodiazepine withdrawal in the setting of lower threshold for seizure activity with COVID-19 infection, fever, and tramadol use Prolactin was normal, however lactate was elevated on arrival and is improved - with Lactic Acidosis, resolved Is improving, no further seizure activity Appreciate neurology consultation-no EEG needed and recommends very long slow taper of Xanax over 6 weeks by reducing daily dose by 0.5 mg every week -Seizure precautions -Restarted his original dose of Xanax 1 mg PO TID -PRN IV Ativan of 4mg q5min for seizure activity (comment placed to contact early childhood education coordinator provider if using) (2) Hypertension: Plan: Blood pressures are controlled -Continue hydrochlorothiazide & Benazepril (3) Anxiety: Plan: Anxiety is controlled -Continue xanax 3 times a day and taper down slowly over 6 weeks -Continue prozac -Neurology recommends adding BuSpar as needed (4) Chronic pain: Plan: Continue tramadol as needed (5) COVID-19: Plan: -Found on admission -Stable on room air -Received 2 doses of initial vaccine but did not receive a booster with fever mild headache, but no hypoxia, not requiring oxygen No specific treatment needed (6) Asystole: Plan: -Do not believe that patient had an episode of pulselessness after discussions with his daughters, they may have misinterpreted his postictal state with apnea and began compressions -No concerning ECG changes and first troponin WNL -Troponin negative x2, echocardiogram negative Plan DVT prophylaxis-Lovenox Disposition-continued stay, but possible discharge home tomorrow if doing well. PT/OT consults placed Discussed his care with his daughter, Tiffanie, on the phone. She is a CLUBHOUSE ATTENDANT here at this hospital. Admission and Anticipated Discharge Date Admission Date: February 07, 2022 Subjective Patient is very hard of hearing. He reports having a sore tongue after biting it during his seizure yesterday. Otherwise no seizure activity. He does have a bit of a headache and is getting a fever right now. He denies cough or shortness of breath, no chest pain. No abdominal pains. He is eating. He is agreeable to a slow taper down on his Xanax. Telemetry with sinus bradycardia and normal sinus rhythm with rates in the 60s to 70s Review of Systems Review of Systems: All systems reviewed & are unremarkable except as noted in HPI & below Physical Exam Constitutional: WD/WN, vitals as above Eyes: PERRL, conjunctivae normal, anicteric sclerae ENMT: external ear and nose normal, oropharynx normal (Except small bite nico on left side of lateral tongue) Neck: trachea midline, no thyromegaly Respiratory: normal respiratory effort, lungs clear to auscultation Cardiovascular: RRR, no murmur, no edema Chest (Breasts): Chest: normal inspection of chest Gastrointestinal (Abdomen): normal bowel sounds, soft, nontender, no hepatosplenomegaly Musculoskeletal: Extremities: extremities normal to inspection; no cyanosis and no clubbing Skin: no rashes, warm and dry Neurologic: moves all extremities and awake; no focal motor deficits Psychiatric: A+Ox3, euthymic affect Lymphatic: no lymphedema Results & Data Results & Data ([facility]) Vital Signs (Past 12 Hours) Vital Signs Temp Pulse Pulse Resp BP Pulse Ox O2 Del Method 02/08/22 16:00 Room Air 02/08/22 16:42 37.8 C H 71 20 138/68 96 Room Air 02/08/22 15:15 68 02/08/22 11:45 37.4 C 70 19 109/58 L 94 Room Air 02/08/22 09:30 Room Air 02/08/22 07:53 36.8 C 78 20 132/70 95 Room Air Laboratory Results 02/08/22 02/08/22 02/08/22 Range/Units 06:55 06:55 06:55 WBC 8.69 (4.8-10.8) K/ul RBC 4.11 L (4.63-6.08) M/uL Hgb 13.3 L (14.0-18.0) g/dl Hct 39.1 L (40.1-51.0) % MCV 95.1 (80.0-100.0) fL MCH 32.4 (25.0-34.0) pg MCHC 34.0 (32.0-36.0) g/dL RDW Std Deviation 46.7 H (36.4-46.3) fL RDW Coeff of Hiren 13.3 (11.5-14.5) % Plt Count 211 (130-400) K/uL MPV 10.0 (9.4-12.4) fL Sodium 138 (136-145) mmol/L Potassium 3.7 (3.5-5.1) mmol/L Chloride 104 (98-107) mmol/L Carbon Dioxide 29 (21-32) mmol/L Anion Gap 5 (3-11) BUN 23 (6-23) mg/dl Creatinine 1.16 (0.6-1.4) mg/dl Est Cr Clr Drug Dosing 66.2 ml/min Est GFR ( Amer) 71.5 ml/min Est GFR (Non-Af Amer) 61.7 ml/min BUN/Creatinine Ratio 19.8 (10-20) Glucose 94 (70-99(Fasting)) mg/dl Lactate (0.4-2.0) mmol/L Calcium 8.8 (8.5-10.1) mg/dl Total Bilirubin 0.7 (0.2-1.0) mg/dl AST 15 (13-39) U/L ALT 11 (7-52) U/L Alkaline Phosphatase 71 (34-104) U/L Troponin I High Sens (0-20) pg/ml Total Protein 6.4 (6.0-8.3) gm/dl Albumin 3.7 (3.4-5.0) gm/dl Globulin 2.7 (2.5-4.0) gm/dl Albumin/Globulin Ratio 1.4 (0.9-2) Urine Color Urine Appearance (Clear) Urine pH (4.5-7.5) Ur Specific [place] (1.000-1.030) Urine Protein (Negative) Urine Glucose (UA) (Negative) Urine Ketones (Negative) Urine Blood (Negative) Urine Nitrite (Negative) Urine Bilirubin (Negative) Urine Urobilinogen (Negative) Ur Leukocyte Esterase (Negative) Hepatitis C Ab (EIA) Pending Hep C Ab Signal/Cutoff Pending 02/07/22 02/07/22 02/07/22 Range/Units 22:23 18:47 18:44 WBC (4.8-10.8) K/ul RBC (4.63-6.08) M/uL Hgb (14.0-18.0) g/dl Hct (40.1-51.0) % MCV (80.0-100.0) fL MCH (25.0-34.0) pg MCHC (32.0-36.0) g/dL RDW Std Deviation (36.4-46.3) fL RDW Coeff of Hiren (11.5-14.5) % Plt Count (130-400) K/uL MPV (9.4-12.4) fL Sodium (136-145) mmol/L Potassium (3.5-5.1) mmol/L Chloride (98-107) mmol/L Carbon Dioxide (21-32) mmol/L Anion Gap (3-11) BUN (6-23) mg/dl Creatinine (0.6-1.4) mg/dl Est Cr Clr Drug Dosing ml/min Est GFR ( Amer) ml/min Est GFR (Non-Af Amer) ml/min BUN/Creatinine Ratio (10-20) Glucose (70-99(Fasting)) mg/dl Lactate 1.2 (0.4-2.0) mmol/L Calcium (8.5-10.1) mg/dl Total Bilirubin (0.2-1.0) mg/dl AST (13-39) U/L ALT (7-52) U/L Alkaline Phosphatase (34-104) U/L Troponin I High Sens 8.2 (0-20) pg/ml Total Protein (6.0-8.3) gm/dl Albumin (3.4-5.0) gm/dl Globulin (2.5-4.0) gm/dl Albumin/Globulin Ratio (0.9-2) Urine Color Yellow Urine Appearance Clear (Clear) Urine pH 5.5 (4.5-7.5) Ur Specific [place] > 1.045 H (1.000-1.030) Urine Protein Negative (Negative) Urine Glucose (UA) Trace H (Negative) Urine Ketones Negative (Negative) Urine Blood Negative (Negative) Urine Nitrite Negative (Negative) Urine Bilirubin Negative (Negative) Urine Urobilinogen Negative (Negative) Ur Leukocyte Esterase Negative (Negative) Hepatitis C Ab (EIA) Hep C Ab Signal/Cutoff PG Care Time/CCT Total # of Minutes Spent Total Time Spent with Patient: Total time spent is greater than 50% in coordination of care (as documented) at patient's floor/unit and/or counseling patient: Coding Level of Care Code 17132 Subseq Hosp Care Lvl 3 Diagnoses Seizure R56.9 Hypertension I10 Anxiety F41.9 Chronic pain G89.29 COVID-19 U07.1 Asystole I46.9
[2022-02-09 06:08] LABS: Hematocrit (blood only) 40.1 % (40.1-51.0); Hemoglobin 13.5 g/dl (14.0-18.0); Mean Corpuscular Hemoglobin 32.1 pg (25.0-34.0); Mean Corpuscular Hgb Conc 33.7 g/dL (32.0-36.0); Mean Corpuscular Volume 95.2 fL (80.0-100.0); Platelet Count 195 K/uL (130-400); RDW Coefficient of Variation 13.1 % (11.5-14.5); RDW Standard Deviation 45.5 fL (36.4-46.3); Red Blood Count 4.21 M/uL (4.63-6.08); White Blood Count 6.67 K/ul (4.8-10.8)
[2022-02-09 06:40] LABS: Albumin Globulin Ratio 1.4 (0.9-2); Albumin Level 3.7 gm/dl (3.4-5.0); BUN Creatinine Ratio 16.5 (10-20); Bilirubin,Total 0.4 mg/dl (0.2-1.0); Calcium 8.8 mg/dl (8.5-10.1); Creatinine Clr Calc Pharmacy 60.5 ml/min; Est GFR (African American) 64.1 ml/min; Est GFR (Non-African American) 55.3 ml/min; Globulin 2.7 gm/dl (2.5-4.0); Potassium 3.6 mmol/L (3.5-5.1); Total Protein 6.4 gm/dl (6.0-8.3)
[2022-02-09] MEDS: ALPRAZolam 0.5 MG TABLET PO SCH ×3 (08:25→20:24)
[2022-02-09] MEDS: ENOXAPARIN INJ 40 MG/0.4 ML SYR SQ SCH ×2 (08:26→20:24)
[2022-02-09] MEDS ORDERED: IPRATROPIUM BROMIDE/ALBUTEROL respimat INH INH SCH (17:00)
[2022-02-09] MEDS: ALBUTEROL HFA 8 GM INHALER INH SCH (20:12)
[2022-02-09] MEDS: IPRATROPIUM BROMIDE HFA INHALER INH SCH (20:12)
[2022-02-09] MEDS: ACETAMINOPHEN 325 MG TAB PO PRN (20:24)
[2022-02-09] MEDS: guaiFENesin 600 MG TABCR PO SCH (20:25)
--- NOTE | 2022-02-09 20:42 | Hospitalist Progress Note ---
Date of Service February 09, 2022 Assessment & Plan (1) Seizure-like activity: Plan: Seen by neurology - felt to have had seizure as a result of rapid weaning of xanax in the setting of COVID illness as well as tramadol usage. Xanax placed back to 1mg TID with anticipated wean over 6+ weeks. Stop tramadol. Cont seizure precautions. No need for anti-epileptic medication at this time. Will check with neuro about driving post-d/c. (2) Asystole: Plan: apparent life-threatening event at home with family instituting CPR in the setting of his seizure. felt NOT to have had a cardiac event. telemetry has been normal while here. echo wnl. troponins negative. no cardiac symptoms while here. (3) Lab test positive for detection of COVID-19 virus: Plan: symptomatic COVID but no evidence of pneumonia. cont supportive care. for wheezing -- add combivent, mucinex, flutter valve & incentive jarod. no indication for steroids or Remdesivir at this time. cont airborne precautions. (4) Hypertension: Plan: cont hydrochlorothiazide & Benazepril BPs acceptable (5) Anxiety: Plan: cont xanax 1mg TID wean over 6-8 weeks if patient desires, cutting by 0.5mg each week Plan DVT proph - lovenox patient passed PT/OT maria teresa family (daughter) updated today anticipate d/c home tomorrow Admission and Anticipated Discharge Date Admission Date: February 07, 2022 Subjective some mild body aches still present some cough, but no dyspnea no h/o COPD feels weak but able to walk in room independently no GI symptoms eating well mentions that his is currently in [place] receiving rehab - she had a stroke within the last year mentions stress/anxiety related to such tele overnight wnl Review of Systems Review of Systems: gen - no chills; some fatigue cv - no cp pulm - no dyspnea GI - no nausea/emesis/diarrhea neuro - no further seizures Physical Exam Physical Exam: gen - coughing, tired-appearing, otherwise NAD mouth - MMM neck - no JVD heart - RRR, s1 s2, no murmur lungs - mild end-exp wheezing b/l but no rales abd - soft, BS+ ext - no edema, pulses 2+ b/l Results & Data Results & Data ([facility]) Vital Signs (Past 12 Hours) Vital Signs Temp Pulse Pulse Pulse Resp BP Pulse Ox 02/09/22 20:15 81 16 95 02/09/22 19:47 37.7 C H 74 18 152/67 H 97 02/09/22 16:40 95 02/09/22 15:43 36.6 C 68 20 143/78 H 94 02/09/22 15:00 62 02/09/22 14:38 37.4 C 71 20 138/81 96 02/09/22 10:37 36.8 C 65 20 111/74 95 O2 Del Method 02/09/22 20:15 Room Air 02/09/22 19:47 Room Air 02/09/22 16:40 02/09/22 15:43 Room Air 02/09/22 15:00 02/09/22 14:38 Room Air 02/09/22 10:37 Room Air Laboratory Results Laboratory Results - last 24 hr 02/08/22 02/09/22 02/09/22 06:55 05:45 05:45 WBC 6.67 RBC 4.21 L Hgb 13.5 L Hct 40.1 MCV 95.2 MCH 32.1 MCHC 33.7 RDW Std Deviation 45.5 RDW Coeff of Hiren 13.1 Plt Count 195 MPV 10.0 Sodium 138 Potassium 3.6 Chloride 103 Carbon Dioxide 30 Anion Gap 5 BUN 21 Creatinine 1.27 Est Cr Clr Drug Dosing 60.5 Est GFR ( Amer) 64.1 Est GFR (Non-Af Amer) 55.3 BUN/Creatinine Ratio 16.5 Glucose 89 Calcium 8.8 Total Bilirubin 0.4 AST 15 ALT 11 Alkaline Phosphatase 65 Total Creatine Kinase Total Protein 6.4 Albumin 3.7 Globulin 2.7 Albumin/Globulin Ratio 1.4 Hepatitis C Ab (EIA) NON-REACTIVE Hep C Ab Signal/Cutoff 0.07 02/09/22 05:45 WBC RBC Hgb Hct MCV MCH MCHC RDW Std Deviation RDW Coeff of Hiren Plt Count MPV Sodium Potassium Chloride Carbon Dioxide Anion Gap BUN Creatinine Est Cr Clr Drug Dosing Est GFR ( Amer) Est GFR (Non-Af Amer) BUN/Creatinine Ratio Glucose Calcium Total Bilirubin AST ALT Alkaline Phosphatase Total Creatine Kinase 144 Total Protein Albumin Globulin Albumin/Globulin Ratio Hepatitis C Ab (EIA) Hep C Ab Signal/Cutoff PG Care Time/CCT Total # of Minutes Spent Total Time Spent with Patient: Total time spent is greater than 50% in coordination of care (as documented) at patient's floor/unit and/or counseling patient: Coding Level of Care Code 83056 Subseq Hosp Care Lvl 2 Diagnoses Seizure-like activity R56.9 Asystole I46.9 Lab test positive for detection of COVID-19 virus U07.1 Hypertension I10 Anxiety F41.9
[2022-02-10] MEDS: IPRATROPIUM BROMIDE HFA INHALER INH SCH ×2 (07:25→11:41)
[2022-02-10] MEDS: ALBUTEROL HFA 8 GM INHALER INH SCH ×2 (07:25→11:41)
[2022-02-10 07:38] LABS: Hematocrit (blood only) 40.2 % (40.1-51.0); Hemoglobin 13.9 g/dl (14.0-18.0); Mean Corpuscular Hemoglobin 32.2 pg (25.0-34.0); Mean Corpuscular Hgb Conc 34.6 g/dL (32.0-36.0); Mean Corpuscular Volume 93.1 fL (80.0-100.0); Mean Platelet Volume 10.1 fL (9.4-12.4); Platelet Count 205 K/uL (130-400); RDW Standard Deviation 44.6 fL (36.4-46.3); Red Blood Count 4.32 M/uL (4.63-6.08)
[2022-02-10 07:58] LABS: Albumin Globulin Ratio 1.4 (0.9-2); Albumin Level 3.8 gm/dl (3.4-5.0); BUN Creatinine Ratio 20.2 (10-20); Bilirubin,Total 0.4 mg/dl (0.2-1.0); Calcium 8.9 mg/dl (8.5-10.1); Creatinine Clr Calc Pharmacy 73.8 ml/min; Est GFR (African American) 81.6 ml/min; Est GFR (Non-African American) 70.4 ml/min; Globulin 2.8 gm/dl (2.5-4.0); Potassium 3.7 mmol/L (3.5-5.1); Total Protein 6.6 gm/dl (6.0-8.3)
[2022-02-10] MEDS: ALPRAZolam 0.5 MG TABLET PO SCH ×2 (08:08→13:24)
[2022-02-10] MEDS: ACETAMINOPHEN 325 MG TAB PO PRN (08:08)
[2022-02-10] MEDS: ENOXAPARIN INJ 40 MG/0.4 ML SYR SQ SCH (08:09)
[2022-02-10] MEDS: guaiFENesin 600 MG TABCR PO SCH (08:09)
[2022-02-10] MEDS ORDERED: ALBUTEROL HFA 8 GM INHALER INH PRN (11:17)
[2022-02-10] MEDS ORDERED: IPRATROPIUM BROMIDE HFA INHALER INH PRN (11:17)
[2022-02-10] MEDS ORDERED: lisinopril 20 MG TAB PO ONE (11:45)
[2022-02-10] MEDS ORDERED: hydroCHLOROthiazide 25 MG TAB PO STA (14:50)
[2022-02-10] MEDS ORDERED: FLUoxetine HCL 20 MG CAP PO ONE (14:50)
--- NOTE | 2022-02-10 15:25 | Discharge Summary ---
Date of Service February 10, 2022 Admission HPI Per Admitting Provider Hector is a 76 year old male with a PMH significant for HTN, anxiety, asthma, anxiety, and grade I diastolic dysfunction who presented to the [facility] on 02/07/22 with complaints of seizure-like activity and possible pulselessness. In the ED the patient was found to be afebrile, hemodynamically stable, and stable on room air. Labs were remarkable for Covid +, leukocytosis of 12.6 with a left shift of 10.92, prolactin of 6.71 but elevated lactate of 2.1. Chest xray was negative for acute findings. CT of the head was negative and CTA of the chest was negative for central pulmonary emboli, pneumonia/pleural effusion, and showed cardiomegaly. The exam was limited due to respiratory motion. The patient was given 1.5 mg of IV ativan and 1L NSS bolus. At the time of the exam the patient was resting comfortably in bed with his daughters sitting bedside. They state that the patient saw his PCP on 01/29/22 and they decided to start weaning his dose of xanax, which he was taking 1 mg PO TID for years. They initially started him on a slow taper by halving the dose every few days. The patient began this taper but eventually stopped taking the Xanax all together much sooner than he was supposed to. His daughters state that earlier today he started noticing some tingling in his upper extremities and a change in smell. He then stopped responding to them and they noticed so tonic activity and fast breathing. They were concerned that he had stopped breathing and began chest compressions. When EMS arrived they were able to find a pulse and compressions were stopped. He states that prior to this event he noticed some chest tightness. Over the past few days he has felt the chills, but denies cough, SOB, congestion. He has had some mild abdominal pain and diarrhea. At the current time the patient states that he feels good besides some soreness where his daughters were doing chest compressions. Discharge Exam gen - coughing, tired-appearing, otherwise NAD mouth - MMM neck - no JVD heart - RRR, s1 s2, no murmur lungs - mild end-exp wheezing b/l but no rales abd - soft, BS+ ext - no edema, pulses 2+ b/l Discharge Data Allergies Allergy/AdvReac Type Severity Reaction Status Date / Time capsaicin Allergy Intermediate CAUSED Verified 02/07/22 17:46 JAUNDICE, ALTERED LIVER FUNCTION diclofenac Allergy Intermediate CAUSED Verified 02/07/22 17:46 JAUNDICE, ALTERED LIVER FUNCTION Diclopak Allergy Mild CAUSED Verified 10/16/16 17:03 JAUNDICE, ALTERED LIVER FUNCTION Consultations 02/07/22 16:30 ED Decision to Admit Stat 02/07/22 16:48 Consult Neurology Routine Ordered Studies 02/07/22 13:07 CT head/brain wo con Stat 02/07/22 15:12 CT angio chest PE protocol Stat Hospital Course (1) Seizure-like activity: Seen by neurology - felt to have had seizure as a result of rapid weaning of xanax in the setting of COVID illness as well as tramadol usage. Xanax placed back to 1mg TID with anticipated wean over 6+ weeks. Stop tramadol. Cont seizure precautions. No need for anti-epileptic medication at this time. Will check with neuro about driving post-d/c. (2) Asystole: apparent life-threatening event at home with family instituting CPR in the setting of his seizure. felt NOT to have had a cardiac event. telemetry has been normal while here. echo wnl. troponins negative. no cardiac symptoms while here. (3) Lab test positive for detection of COVID-19 virus: symptomatic COVID but no evidence of pneumonia. cont supportive care. for wheezing -- add combivent, mucinex, flutter valve & incentive jarod. no indication for steroids or Remdesivir at this time. cont airborne precautions. (4) Hypertension: cont hydrochlorothiazide & Benazepril BPs acceptable (5) Anxiety: cont xanax 1mg TID wean over 6-8 weeks if patient desires, cutting by 0.5mg each week Plan DVT proph - lovenox patient passed PT/OT evals family (daughter) updated today anticipate d/c home tomorrow Home Health Attestation I certify that this patient is under my care and that I, or a physicians clinical assistant professor working with me, had a face to-face encounter that meets the home health [id number] encounter requirements with this patient. The encounter with the patient was in whole, or in part, for the following medic al condition, which is the primary reason for home health care (list medical condition): I certify that, based on my findings, the following services are medically necessary home health services: My clinical findings support the need for the above services because: Further, I certify that my clinical findings support that this patient is homebound (i.e. absences from home require considerable and taxing effort and are for medical reasons or episcopalian services or infrequently or of short duration when for other reasons) because: Certification for Home Health Services: Based on the above findings, I certify that this patient is confined to the home and needs intermittent [facility]p care, physical therapy and/or speech therapy or continues to need occupational therapy. The patient is under my care, and I have initiated the establishment of the plan of care. This patient will be followed by a physician who will periodically review the plan of care. Discharge Plan Discharge Items Patient Disposition: Home - Home Health Services Reason For Visit: SEIZURE-LIKE ACTIVITY Discharge Diagnosis: 1. seizure - likely due to withdrawal from xanax (alprazolam) 2. COVID-19 infection 3. high blood pressure Activity: As commented below Activity Comment: gradually increase activities over the next week Driving/Machine Use: NO DRIVING OR OPERATING HEAVY MACHINERY UNTIL CLEARED BY NEUROLOGY Non-emergency contact: Primary Care Provider and Neurologist Call non-emergency contact if: you have any medication questions and your symptoms worsen Follow-up/Referrals: Kieran Solano MD [Physician] - (2-3 weeks with [facility] [facility]; f/u of seizure, f/u of hospitalization) Pradeep Chappell MD [Primary Care Provider] - 02/18/22 11:10 am (Or one of his partners within 1 week) Diet: Heart Healthy Addtl Attending Provider Instructions: Mr Ruiz, You were hospitalized after having had a suspected seizure at your home. The seizure was witnessed by family members. You received CPR (chest compressions) by your family as they were concerned you had lost your pulse during this event. Upon arrival to [facility] we did not find evidence of any heart attack or blood clots of the lungs. CT scan of the head was normal. Your COVID-19 test was positive. We did feel that you had suffered a seizure - likely due to weaning off Xanax (alprazolam) medication too quickly. It is also possible that having had COVID infection increased your chances of having a seizure. Tramadol medication also increases the risk of seizure. You were seen by [facility] Neurology. They felt that the seizure was due to the factors listed above. They do not recommend anti-seizure medication at this time. With respect to the chest compressions it was NOT felt that you had suffered any cardiac arrest. Your echocardiogram heart ultrasound was normal. Your heart monitoring was normal on telemetry. Your COVID symptoms improved while here and you had no further seizures. PT, OT saw you in consult and you did well with your walking - you do not need to go to rehab. Recommendations - 1. NO DRIVING A CAR, AND NO USE OF HEAVY MACHINERY - UNLESS CLEARED BY [facility] NEUROLOG[facility]. You will have follow-up with neurology in a few weeks. 2. Resume your Xanax (alprazolam) anxiety medication - 1mg three times daily. Do not wean at this time. Please speak to your family doctor about weaning it in the future at a slower rate - perhaps over 6-8 weeks. But, again, do NOT wean at this time. 3. Resume your Fluoxetine (prozac) per prior dosing - 3 tabs AM, 1 PM. 4. STOP your tramadol pain medication. 5. Resume your usual blood pressure medications TOMORROW morning. 6. For COVID symptoms - * continue the flutter valve and incentive spirometry another 4-5 days * may use [id number] mucinex up to 1200mg twice daily as needed for cough * may use combivent inhaler 1 puff every 6 hours as needed for cough/wheeze/chest congestion 7. Please ISOLATE (stay at home, do not have visitors unless it is close family checking on you) for another 5 days. OK to stop isolation on Tuesday, 02/15, if you are feeling better and have no fever on Tuesday/Tuesday of this weekend. 8. We will have a home health nurse check on you at your home to ensure you are making a smooth transition out of the hospital. Follow-up - see separate section Return to [facility] if - * you have recurrent seizures * you have chest pain * you are having worsening shortness of breath * any other concerns It was our pleasure caring for you! Dr Alfonso Pending Studies at Discharge: No Stand-Alone Forms: My [facility], Smoking Cessation Medications and DC Order Prescriptions: New Combivent Respimat 20-100 mcg/actuation mist 1 puff inhalation Q6H PRN (Reason: cough/wheeze/chest congestion) Qty: 4 0RF Continued fluoxetine 20 mg Tablet 20 mg PO UD Rx Instructions: TAKES 3TABS IN AM/1 TAB IN PM benazepril 40 mg Tablet 40 mg PO QAM hydrochlorothiazide 25 mg Tablet 25 mg PO QAM naproxen 500 mg Tablet 500 mg PO BID zolpidem [Ambien] 10 mg Tablet 10 mg PO HS PRN (Reason: Sleep) Changed alprazolam [Xanax] 1 mg Tablet 1 mg PO TID Qty: 1 0RF Rx Instructions: has been weaning off Discontinued tramadol 50 mg Tablet 50 - 100 mg PO QID PRN (Reason: Pain) Discharge Orders: Discharge Order (Routine); Ordered 02/10/22 Ordered By: Andre Alfonso Admission Data Admit Date/Time: 02/07/22 16:48 Attending Provider: Andre Alfonso Admit Provider: Nigel Diallo Primary Care Provider: Pradeep Chappell Other Providers: Corby Rodrigez ; Nigel Diallo ; Kenneth Teran ; Kieran Solano ; Milka Kuhn se ; Summer Ferrari ; Bronson Alvarado ; Summer Parry ; Ced Faustin ; Sharmila Aquino ; Rafael Escalona ; Teresita Owens ; Araceli Gunter Coding Diagnoses Seizure-like activity R56.9 Asystole I46.9 Lab test positive for detection of COVID-19 virus U07.1 Hypertension I10 Anxiety F41.9
== END 2022-02-10 19:25 | disposition home health service (06) ==
LOC: ED 13:01 → SUATTDRO 16:48 → INTOOBSV 16:48 → 2S 16:48